=== PATIENT | female | born 1980 | race Caucasian/White ===

== ENCOUNTER 2017-03-22 17:44 | Emergency (ER) | payer BC ==
[~2017-03-22] VITALS: Ht 160 cm; Wt 90.7 kg
[2017-03-22 18:10] LABS: URINE BLOOD NEGATIVE (Negative); URINE COLOR YELLOW; URINE GLUCOSE-RANDOM* NEGATIVE (Negative); URINE KETONES 3+ (Negative); URINE NITRITE NEGATIVE (Negative); URINE PROTEIN (DIPSTICK) TRACE (Negative); URINE SPECIFIC GRAVITY 1.025 (1.005-1.035)
[2017-03-22 18:11] LABS: ABSOLUTE NEUTROPHILS 13.1 thou/uL (1.4-8.2); BASOPHILS 0.7 % (0.0-2.0); EOSINOPHILS 0.2 % (0.0-3.0); HEMATOCRIT 40.5 % (37.0-47.0); HEMOGLOBIN 13.9 gm/dL (12.0-15.0); LYMPHOCYTES 11.7 % (24.0-44.0); MCH 29.8 pg (26.0-34.0); MCHC 34.3 g/dL (28.0-37.0); MCV 86.9 fL (80.0-100.0); MONOCYTES 5.9 % (1.0-8.0); PLATELET COUNT 347 thou/uL (150-400); POLYS 81.5 % (36.0-66.0); RBC 4.66 mil/uL (4.20-5.00); RDW 13.4 % (10.5-14.5); WBC 16.1 thou/uL (4.0-11.0)
[2017-03-22 18:14] LABS: ICTOTEST (BILI CONFIRMATORY) Negative (Negative); URINE BILIRUBIN NEGATIVE (Negative)
[2017-03-22 18:14] LABS: MANUAL DIFF NO
[2017-03-22 18:17] LABS: CALCIUM 9.8 mg/dL (8.5-10.1); CREATININE 0.9 mg/dL (0.6-1.0); POTASSIUM 4.1 mmol/L (3.5-5.1)
[2017-03-22] MEDS ORDERED: EFFEXOR XR75 MG PO (18:23)
[2017-03-22 18:24] LABS: ALBUMIN 4.2 g/dL (3.4-5.0); DIRECT BILIRUBIN 0.2 mg/dL (<0.1-0.3); TOTAL BILIRUBIN 0.6 mg/dL (<0.1-1.0); TOTAL PROTEIN 8.3 g/dL (6.4-8.2)
[2017-03-22] MEDS ORDERED: XANAX1 MG PO (18:24)
[2017-03-22] MEDS ORDERED: PHENERGAN 25 MG25 M1 PO (19:40)
[2017-03-22] MEDS ORDERED: PROMS25 WY RECTAL (19:40)
[2017-03-22] MEDS ORDERED: ZOFRAN ODT4 MG PO (19:40)
[2017-03-22 20:01] VITALS: BP 118/67
== END 2017-03-22 20:02 | disposition still patient (30) ==
LOC: ER 17:44
PROVIDERS: Emergency Medicine
DX: R11.2 Nausea with vomiting, unspecified (principal); D72.829 Elevated white blood cell count, unspecified; R10.84 Generalized abdominal pain; Z87.442 Personal history of urinary calculi